=== PATIENT | female | born 1980 | race Caucasian/White ===

== ENCOUNTER 2022-04-07 08:21 | Inpatient (IN) | payer OTHER ==
[~2022-04-07] VITALS: Ht 157.5 cm; Wt 79.5 kg
[2022-04-07 09:05] LABS: BASOPHIL 0.4 % (0-2); EOSINOPHIL 0.3 % (0-5); HCT 43.7 % (37.0-47.0); HGB 14.4 g/dl (12.5-16.0); LYMPHOCYTE 12.3 % (15-48); MCH 29.1 pg (25.0-31.0); MCV 88.3 fL (78.0-100.0); MONOCYTE 12.8 % (0-12); NEUTROPHIL 73.7 % (41-80); NRBC 0; PLT 352 K/uL (150-400); RBC 4.95 M/uL (4.20-5.40); RDW 13.7 % (11.5-14.0); WBC 20.8 K/uL (4.0-10.5)
[2022-04-07 09:43] LABS: CORONAVIRUS 2019 SARS-COV-2 NEGATIVE (NEGATIVE); INFLUENZA A NAA NEGATIVE (NEGATIVE)
[2022-04-07 10:38] LABS: BILIRUBIN NEGATIVE (NEGATIVE); BLOOD 2+ Ery/uL (NEGATIVE); CLARITY CLEAR (CLEAR); COLOR YELLOW (YELLOW); GLUCOSE (U) NORMAL (NORMAL); LEUKOCYTES NEGATIVE Leu/uL (NEGATIVE); NITRITE NEGATIVE (NEGATIVE); PROTEIN NEGATIVE (NEGATIVE); SPECIFIC GRAVITY 1.015 (1.001-1.030); UROBILINOGEN 0.2 mg/dL (0.2-1.0); pH 5.5 (5.0-9.0)
[2022-04-07 10:52] LABS: BACTERIA 1+
[2022-04-07 11:16] LABS: ALBUMIN 3.7 g/dL (3.4-5.0); BILIRUBIN - TOTAL 0.9 mg/dL (0.2-1.0); BUN/CREAT RATIO (CALC) 17.7 RATIO; CREATININE 0.62 mg/dL (0.51-0.95); GLOBULIN (CALCULATION) 4.4 g/dL; POTASSIUM 3.6 mmol/L (3.5-5.1); TOTAL PROTEIN 8.1 g/dL (6.4-8.2)
[2022-04-07] MEDS ORDERED: BASAGLAR K100 UNIT/1 SC (16:06)
[2022-04-08 07:01] LABS: HGB 12.1 g/dl (12.5-16.0); MCH 28.9 pg (25.0-31.0); MCHC 32.7 g/dL (32.0-36.0); MCV 88.5 fL (78.0-100.0); MPV 11.8 fL (6.0-9.5); RBC 4.18 M/uL (4.20-5.40); RDW 13.8 % (11.5-14.0); WBC 15.6 K/uL (4.0-10.5)
[2022-04-08 07:56] LABS: BUN/CREAT RATIO (CALC) 12.3 RATIO; CREATININE 0.57 mg/dL (0.51-0.95); POTASSIUM 3.2 mmol/L (3.5-5.1)
--- NOTE | 2022-04-08 22:51 | NUR ---
04/07/22 7P-7A PATIENT REFUSING ALL PO MEDS DUE TO NAUSEA, IV PAIN MEDICATION WAS GIVEN THROUGHOUT THE NIGHT ALONG WITH NAUSEA MEDICATION. JASEN FLOOR ATTENDANT NOTIFIED OF NO RELIEVIING NAUSEA FACTORS, PATIENT MADE NPO AT [facility] [id number]. 04/08/22 2100 PATIENT REFUSES PO MEDICATION FOR PAIN REQUEST IV MEDICATION PATIENT STATES "THAT SEEMS TO HELP MORE"
[2022-04-09 06:39] LABS: HCT 37.8 % (37.0-47.0); HGB 12.4 g/dl (12.5-16.0); MCHC 32.8 g/dL (32.0-36.0); MCV 88.3 fL (78.0-100.0); MPV 11.2 fL (6.0-9.5); RBC 4.28 M/uL (4.20-5.40); RDW 13.4 % (11.5-14.0)
[2022-04-09 08:01] LABS: BUN/CREAT RATIO (CALC) 14.6 RATIO; CREATININE 0.48 mg/dL (0.51-0.95)
[2022-04-09] MEDS ORDERED: COMPAZINE10 MG PO (09:26)
[2022-04-09] MEDS ORDERED: NORCO 5-325 TA1 EACH PO (09:26)
[2022-04-09] MEDS ORDERED: LEVAQUIN500 MG PO (09:26)
[2022-04-09] MEDS ORDERED: FLORASTOR250 MG PO (09:26)
[2022-04-09 09:38] LABS: POTASSIUM 3.6 mmol/L (3.5-5.1)
[2022-04-09] MEDS ORDERED: KEFLEX250 MG PO (13:12)
== END 2022-04-09 09:49 | disposition home or self-care (01) | DRG 872 ==
LOC: FER 08:21 → FMS 14:13
PROVIDERS: Emergency Medicine; ADMIT Family Medicine
DX: A41.50 Gram-negative sepsis, unspecified (principal); N10 Acute pyelonephritis; Z16.29 Resistance to other single specified antibiotic; K86.1 Other chronic pancreatitis; E87.1 Hypo-osmolality and hyponatremia; Z20.822 Contact with and (suspected) exposure to COVID-19; E11.649 Type 2 diabetes mellitus with hypoglycemia without coma; D64.9 Anemia, unspecified; E87.6 Hypokalemia; E66.9 Obesity, unspecified; K86.89 Other specified diseases of pancreas; K31.89 Other diseases of stomach and duodenum; A41.51 Sepsis due to Escherichia coli [E. coli]; N20.0 Calculus of kidney; Z68.32 Body mass index [BMI] 32.0-32.9, adult; Z88.0 Allergy status to penicillin; Z88.8 Allergy status to other drugs, medicaments and biological substances; Z79.4 Long term (current) use of insulin; Z90.49 Acquired absence of other specified parts of digestive tract; Z90.710 Acquired absence of both cervix and uterus; Z80.1 Family history of malignant neoplasm of trachea, bronchus and lung
CPT/HCPCS: 36415; 71260; 80048; 80053; 81001; 82009; 82607; 83036; 83540; 83550; 83605; 83690; 84145; 85025; 87040; 87076; 87088; 87186; C9113; J0696; J0780; J1170; J1650; J2405; J2550; J7030; Q9967; U0002